=== PATIENT | female | born 1995 | race Caucasian/White ===

== ENCOUNTER 2018-03-25 00:49 | Emergency (ER) | payer SELFPAY ==
[2018-03-25 01:51] LABS: POC GLUCOSE 110 mg/dL (70-99)
[2018-03-25 08:31] LABS: NEGATIVE OBC STREP NEG; POSITIVE OBC STREP POS
[2018-03-26 13:23] LABS: CHLAMYDIA PROBE Negative (Negative); GC PROBE Negative (Negative)
== END 2018-03-25 02:50 | disposition home or self-care (01) ==
LOC: ER 00:49
DX: O26.891 Other specified pregnancy related conditions, first trimester (principal); O24.911 Unspecified diabetes mellitus in pregnancy, first trimester; O99.511 Diseases of the respiratory system complicating pregnancy, first trimester; H60.91 Unspecified otitis externa, right ear; J02.9 Acute pharyngitis, unspecified; R10.9 Unspecified abdominal pain; K04.7 Periapical abscess without sinus; Z59.0 Homelessness; Z3A.01 Less than 8 weeks gestation of pregnancy
CPT/HCPCS: 82962; 87070; 87491; 87591; 87880; 99284; Q0111

== ENCOUNTER 2018-04-06 11:09 | Emergency (ER) | payer SELFPAY ==
[2018-04-06 11:45] LABS: ADD MAN DIFF? NO
[2018-04-06 11:50] LABS: BASO % 0 % (0-3); EOS # 0.2 x10^3/uL (0.0-0.7); EOS % 2 % (0-3); HEMOGLOBIN 10.7 g/dL (12.0-15.5); LYMPH # 1.4 x10^3/uL (1.0-4.8); LYMPH % 12 % (24-48); MEAN CORPUSCULAR HEMOGLOBIN 23 pg (25-35); MEAN CORPUSCULAR HGB CONC 32 g/dL (31-37); MEAN CORPUSCULAR VOLUME 70 fL (79-100); MONO # 0.4 x10^3/uL (0.0-1.1); MONO % 4 % (0-9); NEUT # 9.5 x10^3uL (1.8-7.7); NEUT % 82 % (31-73); PLATELET COUNT 409 x10^3/uL (140-400); RED BLOOD COUNT 4.71 x10^6/uL (3.50-5.40); RED CELL DISTRIBUTION WIDTH 16.2 % (11.5-14.5); WHITE BLOOD COUNT 11.5 x10^3/uL (4.0-11.0)
[2018-04-06 11:59] LABS: ANION GAP 11 (6-14); BLOOD UREA NITROGEN 7 mg/dL (7-20); CALCIUM 8.8 mg/dL (8.5-10.1); CARBON DIOXIDE 23 mmol/L (21-32); CHLORIDE 105 mmol/L (98-107); CREATININE 0.6 mg/dL (0.6-1.0); GFR 123.9; GLUCOSE 104 mg/dL (70-99); POTASSIUM 3.9 mmol/L (3.5-5.1); SODIUM 139 mmol/L (136-145)
[2018-04-06 12:00] LABS: NEG OBC SER NEG; POS OBC SER POS; PREG TEST PT QUAL NEGATIVE (NEG)
[2018-04-06 12:05] LABS: ALBUMIN 3.4 g/dL (3.4-5.0); ALK PHOS 123 U/L (46-116); ALT (SGPT) 51 U/L (14-59); AST (SGOT) 44 U/L (15-37); DIRECT BILIRUBIN 0.1 mg/dL (0.0-0.2); LIPASE 99 U/L (73-393); TOTAL BILIRUBIN 0.7 mg/dL (0.2-1.0); TOTAL PROTEIN 7.4 g/dL (6.4-8.2)
[2018-04-06 12:09] LABS: TROPONINI < 0.017 ng/mL (0.000-0.055)
[2018-04-06 12:34] LABS: PLT ESTIMATE INCREASED (ADEQUATE)
[2018-04-06 12:35] LABS: ANISOCYTOSIS SLIGHT; HYPOCHROMIA SLIGHT; MICROCYTOSIS MOD; POLYCHROMASIA SLIGHT
[2018-04-06 12:36] LABS: OVALOCYTES FEW
== END 2018-04-06 13:05 | disposition home or self-care (01) ==
LOC: ER 11:09
DX: O26.891 Other specified pregnancy related conditions, first trimester (principal); R07.9 Chest pain, unspecified; Z3A.01 Less than 8 weeks gestation of pregnancy
CPT/HCPCS: 36415; 71045; 80048; 80076; 83690; 84484; 84703; 85025; 93005; 93970; 99285-25

== ENCOUNTER 2018-11-30 21:06 | Emergency (ER) | payer SELFPAY ==
[~2018-11-30] VITALS: Ht 175.3 cm; Wt 95.3 kg
[~2018-11-30 21:06] MED LIST: ALBU2.5V8 IH; DOCU-109 PO; HYDR-2761 PO; IRON1TAB2 PO; LEVO500T59 PO; NEOM10DR32 RIGHT EAR; guaiFENesin/CODEINE 100mg/10mg PO
[2018-11-30 22:38] LABS: BILIRUBIN,URINE NEGATIVE (NEG); CLARITY,URINE CLEAR; COLOR,URINE YELLOW; NITRITE,URINE NEGATIVE (NEG); PH,URINE 5.5; PROTEIN,URINE NEGATIVE (NEG-TRACE); UROBILINOGEN,URINE 0.2 mg/dL (0.2 mg/dL)
[2018-11-30 22:51] LABS: BACTERIA,URINE FEW /HPF (0-FEW); SQUAMOUS EPITHELIAL CELL,UR MOD /LPF
--- NOTE | 2018-11-30 23:01 | RAD ---
AP abdomen radiograph 07/30/2019 CLINICAL HISTORY: Constipation. An AP supine portable digital radiograph abdomen/pelvis was obtained. Surgical clips are seen within the right upper quadrant abdomen consistent with a cholecystectomy. The abdominal bowel gas pattern is nonobstructive. A moderate amount of stool is seen throughout the colon. The osseous structures are grossly intact. No radiopaque calculus is seen. IMPRESSION: Nonobstructive bowel gas pattern. A moderate amount of stool is seen throughout the colon. Electronically signed by: Dallas Lester MD (11/30/2018 10:58 PM) [facility]
[2018-11-30] MEDS ORDERED: MAGN296S9 PO (23:08)
[2018-11-30 23:15] VITALS: BP 115/58
--- NOTE | 2018-11-30 23:15 | PHYS DOC ---
Past Medical History Past Medical History: Diabetes-Type I, Other Additional Past Medical Histor: 2 miscarriages Past Surgical History: Cholecystectomy Alcohol Use: Occasionally Drug Use: None Adult General Chief Complaint Chief Complaint: CONSTIPATION HPI HPI Patient is a 23 year old [f__sex] who presents with [] Review of Systems Review of Systems Constitutional: Denies fever or chills [] Eyes: Denies change in visual acuity, redness, or eye pain [] HENT: Denies nasal congestion or sore throat [] Respiratory: Denies cough or shortness of breath [] Cardiovascular: No additional information not addressed in HPI [] GI: Denies abdominal pain, nausea, vomiting, bloody stools or diarrhea [] : Denies dysuria or hematuria [] Musculoskeletal: Denies back pain or joint pain [] Integument: Denies rash or skin lesions [] Neurologic: Denies headache, focal weakness or sensory changes [] Endocrine: Denies polyuria or polydipsia [] All other systems were reviewed and found to be within normal limits, except as documented in this note. Allergies Allergies Allergies Coded Allergies Type Severity Reaction Last Updated Verified No Known Drug Allergies 05/11/14 No Physical Exam Physical Exam Constitutional: Well developed, well nourished, no acute distress, non-toxic appearance. [] HENT: Normocephalic, atraumatic, bilateral external ears normal, oropharynx moist, no oral exudates, nose normal. [] Eyes: PERRLA, EOMI, conjunctiva normal, no discharge. [] Neck: Normal range of motion, no tenderness, supple, no stridor. [] Cardiovascular:Heart rate regular rhythm, no murmur [] Lungs & Thorax: Bilateral breath sounds clear to auscultation [] Abdomen: Bowel sounds normal, soft, no tenderness, no masses, no pulsatile masses. [] Skin: Warm, dry, no erythema, no rash. [] Back: No tenderness, no CVA tenderness. [] Extremities: No tenderness, no cyanosis, no clubbing, ROM intact, no edema. [] Neurologic: Alert and oriented X 3, normal motor function, normal sensory function, no focal deficits noted. [] Psychologic: Affect normal, judgement normal, mood normal. [] Current Patient Data Vital Signs Vital Signs Date Time Temp Pulse Resp B/P (MAP) Pulse Ox O2 Delivery O2 Flow Rate FiO2 2/12/19 21:45 98.3 98 20 146/61 (89) 97 Room Air 98.3 Lab Values Laboratory Tests Test 11/30/18 21:15 11/30/18 21:21 Urine Collection Type Unknown Urine Color Yellow Urine Clarity Clear Urine pH 5.5 Urine Specific [place] 1.020 Urine Protein Negative mg/dL (NEG-TRACE) Urine Glucose (UA) Negative mg/dL (NEG) Urine Ketones (Stick) Negative mg/dL (NEG) Urine Blood Moderate (NEG) Urine Nitrite Negative (NEG) Urine Bilirubin Negative (NEG) Urine Urobilinogen Dipstick 0.2 mg/dL (0.2 mg/dL) Urine Leukocyte Esterase Negative (NEG) Urine RBC 6-10 /HPF (0-2) Urine WBC 1-4 /HPF (0-4) Urine Squamous Epithelial Cells Mod /LPF Urine Bacteria Few /HPF (0-FEW) Urine Mucus Mod /LPF POC Urine HCG, Qualitative Hcg negative (Negative) EKG EKG [] Radiology/Procedures Radiology/Procedures [] Course & Med Decision Making Course & Med Decision Making Pertinent Labs and Imaging studies reviewed. (See chart for details) [] Dragon Disclaimer Dragon Disclaimer This electronic medical record was generated, in whole or in part, using a voice recognition dictation system. Departure Departure Impression: Primary Impression: Constipation Disposition: 01 HOME, SELF-CARE Condition: STABLE Referrals: LIOR SCHMITT MD (PCP) Patient Instructions: Constipation, Adult Additional Instructions: Take the medication as directed. Follow-up with your primary care provider for further evaluation of your constipation. Follow-up with your provider for further needs with your diabetes. Scripts Magnesium Citrate (MAGNESIUM CITRATE) 296 Ml Solution 296 ML PO ONCE for constipation, #296 ML Prov: JAMIE FERNANDEZ [employer] MACHINE OPERATOR 11/30/18 JAMIE FERNANDEZ [employer] SEWING MACHINE OPERATOR Nov 30, 2018 23:15
== END 2018-11-30 23:25 | disposition home or self-care (01) ==
LOC: ER 21:06
DX: K59.00 Constipation, unspecified (principal); E10.9 Type 1 diabetes mellitus without complications; Z90.49 Acquired absence of other specified parts of digestive tract
CPT/HCPCS: 74018; 81001; 81025; 82962; 99284

== ENCOUNTER 2018-12-26 03:07 | Emergency (ER) | payer SELFPAY ==
[~2018-12-26] VITALS: Ht 162.6 cm; Wt 97.5 kg
[~2018-12-26 03:07] MED LIST changes: +MAGN296S9 PO
[2018-12-26 03:39] LABS: BILIRUBIN,URINE NEGATIVE (NEG); CLARITY,URINE TURBID; COLOR,URINE YELLOW; NITRITE,URINE NEGATIVE (NEG); PROTEIN,URINE 100 mg/dL (NEG-TRACE)
[2018-12-26 04:11] LABS: BACTERIA,URINE MODERATE /HPF (0-FEW); RBC,URINE TNTC /HPF (0-2); SQUAMOUS EPITHELIAL CELL,UR FEW /LPF; WBC,URINE TNTC /HPF (0-4)
[2018-12-26] MEDS ORDERED: KETOROLAC 15 MG/ML VIAL. IV ONE (04:15)
[2018-12-26 04:21] LABS: BASO # 0.1 x10^3/uL (0.0-0.2); BASO % 1 % (0-3); EOS # 0.3 x10^3/uL (0.0-0.7); EOS % 2 % (0-3); HEMATOCRIT 38.7 % (36.0-47.0); HEMOGLOBIN 12.4 g/dL (12.0-15.5); LYMPH # 2.4 x10^3/uL (1.0-4.8); LYMPH % 20 % (24-48); MEAN CORPUSCULAR HEMOGLOBIN 26 pg (25-35); MEAN CORPUSCULAR HGB CONC 32 g/dL (31-37); MEAN CORPUSCULAR VOLUME 81 fL (79-100); MONO # 0.8 x10^3/uL (0.0-1.1); MONO % 7 % (0-9); NEUT # 8.4 x10^3uL (1.8-7.7); NEUT % 70 % (31-73); PLATELET COUNT 371 x10^3/uL (140-400); RED BLOOD COUNT 4.76 x10^6/uL (3.50-5.40); RED CELL DISTRIBUTION WIDTH 15.4 % (11.5-14.5); WHITE BLOOD COUNT 11.9 x10^3/uL (4.0-11.0)
[2018-12-26 04:34] LABS: CALCIUM 8.9 mg/dL (8.5-10.1); CREATININE 0.7 mg/dL (0.6-1.0); GFR 103.7; POTASSIUM 3.7 mmol/L (3.5-5.1)
[2018-12-26 04:40] LABS: ALBUMIN 3.2 g/dL (3.4-5.0); ALBUMIN/GLOBULIN RATIO 0.7 (1.0-1.7); TOTAL BILIRUBIN 0.2 mg/dL (0.2-1.0); TOTAL PROTEIN 7.5 g/dL (6.4-8.2)
[2018-12-26] MEDS ORDERED: cefTRIAXone IV Push 1 GM VIAL. IVP ONE (04:45)
--- NOTE | 2018-12-26 05:21 | RAD ---
Indication:ACUTE LOW PELVIC PAIN TECHNIQUE: Grayscale, color Doppler and spectral waveform images of the pelvis obtained. COMPARISON:None FINDINGS: The uterus is retroverted and measures 8.3 x 4.4 x 5.0 cm (longitudinal, AP, transverse). Endometrium is thickened measuring 1.5 cm. Right ovary measures 2.3 x 2.3 x 4.9 cm with multiple follicles and shows evidence of blood flow. There is a 1.8 x 1.5 x 1.5 cm isoechoic nodule in the right ovary. The left ovary measures 3.0 x 2.7 x 2.0 cm with a 2.1 x 2.1 x 1.5 cm anechoic cyst adjacent to the left ovary. Left ovary demonstrates evidence of blood flow. Loculated fluid collection is seen in the pelvis with internal septations and debris. IMPRESSION: 1. Bilateral ovaries demonstrate evidence of blood flow. 2. Most likely minimally complicated cyst/hemorrhagic cyst in the right ovary. Follow-up ultrasound in 8-12 weeks recommended. 3. Minimally complicated fluid with septations and internal debris in the pelvis. Electronically signed by: Bharat Cage DO (12/26/2018 5:18 AM) [facility]
[2018-12-26] MEDS ORDERED: AZITHROMYCIN 250 MG TABLET. PO ONE (05:30)
--- NOTE | 2018-12-26 05:31 | PHYS DOC ---
Past Medical History Past Medical History: Diabetes-Type II, Other Additional Past Medical Histor: 2 miscarriages (ZHOU MORALES MD) Past Surgical History: Cholecystectomy (ZHOU MORALES MD) Alcohol Use: None Drug Use: None (ZHOU MORALES MD) Adult General Chief Complaint Chief Complaint: ABDOMINAL PAIN IN HPI HPI Patient is a 23 year old f p/w low abdominal pain thought she was but upreg neg in the er she said she took preg test late october . pt has no vaginal discharge, no vaginal bleeding positive nausea tonight had incraseed pa9in just below umbilicus sharp and cramping in nature so came to er to have baby checked out pt is homeless lives in tent with boyfriend denies dv (ZHOU MORALES MD) Review of Systems Review of Systems Constitutional: Denies fever or chills [] Eyes: Denies change in visual acuity, redness, or eye pain [] HENT: Denies nasal congestion or sore throat [] Respiratory: Denies cough or shortness of breath [] Cardiovascular: No additional information not addressed in HPI [] GI: Neurologic: Denies headache, focal weakness or sensory changes [] Endocrine: Denies polyuria or polydipsia [] All other systems were reviewed and found to be within normal limits, except as documented in this note. (ZHOU MORALES MD) Current Medications Current Medications Current Medications Medications (Trade) Dose Ordered Sig/Pretty Start Time Stop Time Status Last Admin Dose Admin Azithromycin (Zithromax) 1,000 mg 1X ONCE 12/26/18 05:30 12/26/18 05:31 DC 12/26/18 05:29 1,000 MG Ceftriaxone Sodium (Rocephin) 1 gm 1X ONCE 12/26/18 04:45 12/26/18 05:05 DC 12/26/18 04:54 1 GM Info (CONTRAST GIVEN -- Rx MONITORING) 1 each PRN DAILY PRN 12/26/18 06:00 12/28/18 05:59 Iohexol (Omnipaque 300 Mg/ml) 75 ml 1X ONCE 12/26/18 06:00 12/26/18 06:01 DC 12/26/18 06:07 75 ML Ketorolac Tromethamine (Toradol 15mg Vial) 15 mg 1X ONCE 12/26/18 04:15 12/26/18 04:16 DC 12/26/18 04:22 15 MG ([facility]) Allergies Allergies Allergies Coded Allergies Type Severity Reaction Last Updated Verified No Known Drug Allergies 12/26/18 No ([facility]) Physical Exam Physical Exam Constitutional: Well developed, well nourished, no acute distress, non-toxic appearance. [] HENT: Normocephalic, atraumatic, bilateral external ears normal, oropharynx moist, no oral exudates, nose normal. [] Eyes: PERRLA, EOMI, conjunctiva normal, no discharge. [] Neck: Normal range of motion, no tenderness, supple, no stridor. [] Cardiovascular:Heart rate regular rhythm, no murmur [] Lungs & Thorax: Bilateral breath sounds clear to auscultation [] Abdomen: Bowel sounds normal, soft,mild suprapubic tenderness, no masses, no pulsatile masses. [] Skin: Warm, dry, no erythema, no rash. [] gu: there is physiologic discharge negative CMT negative adnexal tenderness. Extremities: No tenderness, no cyanosis, no clubbing, ROM intact, no edema. [] Neurologic: Alert and oriented X 3, normal motor function, normal sensory function, no focal deficits noted. [] Psychologic: Affect normal, judgement normal, mood normal. [] (ZHOU MORALES MD) Current Patient Data Vital Signs Vital Signs Date Time Temp Pulse Resp B/P (MAP) Pulse Ox O2 Delivery O2 Flow Rate FiO2 12/26/18 06:16 72 18 103/51 (68) 96 12/26/18 04:25 Room Air 12/26/18 03:07 97.4 97.4 ([facility]) Lab Values Laboratory Tests Test 12/26/18 02:17 12/26/18 02:20 12/26/18 02:26 12/26/18 03:35 White Blood Count 11.9 x10^3/uL (4.0-11.0) H Red Blood Count 4.76 x10^6/uL (3.50-5.40) Hemoglobin 12.4 g/dL (12.0-15.5) Hematocrit 38.7 % (36.0-47.0) Mean Corpuscular Volume 81 fL (79-100) Mean Corpuscular Hemoglobin 26 pg (25-35) Mean Corpuscular Hemoglobin Concent 32 g/dL (31-37) Red Cell Distribution Width 15.4 % (11.5-14.5) H Platelet Count 371 x10^3/uL (140-400) Neutrophils (%) (Auto) 70 % (31-73) Lymphocytes (%) (Auto) 20 % (24-48) L Monocytes (%) (Auto) 7 % (0-9) Eosinophils (%) (Auto) 2 % (0-3) Basophils (%) (Auto) 1 % (0-3) Neutrophils # (Auto) 8.4 x10^3uL (1.8-7.7) H Lymphocytes # (Auto) 2.4 x10^3/uL (1.0-4.8) Monocytes # (Auto) 0.8 x10^3/uL (0.0-1.1) Eosinophils # (Auto) 0.3 x10^3/uL (0.0-0.7) Basophils # (Auto) 0.1 x10^3/uL (0.0-0.2) Maternal Serum HCG Beta Subunit < 1 mIU/mL (0-5) Sodium Level 140 mmol/L (136-145) Potassium Level 3.7 mmol/L (3.5-5.1) Chloride Level 103 mmol/L (98-107) Carbon Dioxide Level 24 mmol/L (21-32) Anion Gap 13 (6-14) Blood Urea Nitrogen 10 mg/dL (7-20) Creatinine 0.7 mg/dL (0.6-1.0) Estimated GFR (Cockcroft-Gault) 103.7 BUN/Creatinine Ratio 14 (6-20) Glucose Level 154 mg/dL (70-99) H Calcium Level 8.9 mg/dL (8.5-10.1) Total Bilirubin 0.2 mg/dL (0.2-1.0) Aspartate Amino Transferase (AST) 32 U/L (15-37) Alanine Aminotransferase (ALT) 40 U/L (14-59) Alkaline Phosphatase 111 U/L (46-116) Total Protein 7.5 g/dL (6.4-8.2) Albumin 3.2 g/dL (3.4-5.0) L Albumin/Globulin Ratio 0.7 (1.0-1.7) L Lipase 83 U/L (73-393) Urine Collection Type Unknown Urine Color Yellow Urine Clarity Turbid Urine pH 6.0 Urine Specific [place] 1.025 Urine Protein 100 mg/dL (NEG-TRACE) Urine Glucose (UA) Negative mg/dL (NEG) Urine Ketones (Stick) Negative mg/dL (NEG) Urine Blood Large (NEG) Urine Nitrite Negative (NEG) Urine Bilirubin Negative (NEG) Urine Urobilinogen Dipstick 1.0 mg/dL (0.2 mg/dL) Urine Leukocyte Esterase Large (NEG) Urine RBC Tntc /HPF (0-2) Urine WBC Tntc /HPF (0-4) Urine Squamous Epithelial Cells Few /LPF Urine Bacteria Moderate /HPF (0-FEW) POC Urine HCG, Qualitative Hcg negative (Negative) Glucose (Fingerstick) 156 mg/dL (70-99) H Laboratory Tests 12/26/18 02:17 Laboratory Tests 12/26/18 02:17 Microbiology 12/26/18 Wet Prep - Final, Complete (PRASANNA RODRIGUEZ DO) EKG EKG [] (ZHOU MORALES MD) Radiology/Procedures Radiology/Procedures [] (ZHOU MORALES MD) Radiology/Procedures TECHNIQUE: CT abdomen and pelvis with IV contrast with multiplanar reformats. COMPARISON: 07/08/2017 FINDINGS: Heart is normal in size. No pericardial or pleural effusion. Clear lung bases. Liver, spleen, pancreas, adrenals and kidneys within normal limits. No enlarged retroperitoneal or pelvic adenopathy. Status post cholecystectomy. Trace amount of free pelvic fluid is seen. No loculated fluid. No bowel obstruction. Normal appendix. Retroverted uterus. Urinary bladder is within normal limits. No pneumoperitoneum. No suspicious bony lesion. IMPRESSION: Trace amount of free pelvic fluid, nonspecific. PROCEDURE: PELVIS W/TV Indication:ACUTE LOW PELVIC PAIN TECHNIQUE: Grayscale, color Doppler and spectral waveform images of the pelvis obtained. COMPARISON:None FINDINGS: The uterus is retroverted and measures 8.3 x 4.4 x 5.0 cm (longitudinal, AP, transverse). Endometrium is thickened measuring 1.5 cm. Right ovary measures 2.3 x 2.3 x 4.9 cm with multiple follicles and shows evidence of blood flow. There is a 1.8 x 1.5 x 1.5 cm isoechoic nodule in the right ovary. The left ovary measures 3.0 x 2.7 x 2.0 cm with a 2.1 x 2.1 x 1.5 cm anechoic cyst adjacent to the left ovary. Left ovary demonstrates evidence of blood flow. Loculated fluid collection is seen in the pelvis with internal septations and debris. IMPRESSION: 1. Bilateral ovaries demonstrate evidence of blood flow. 2. Most likely minimally complicated cyst/hemorrhagic cyst in the right ovary. Follow-up ultrasound in 8-12 weeks recommended. 3. Minimally complicated fluid with septations and internal debris in the pelvis. (PRASANNA RODRIGUEZ DO) Impressions: IMPRESSION: 1. Bilateral ovaries demonstrate evidence of blood flow. 2. Most likely minimally complicated cyst/hemorrhagic cyst in the right ovary. Follow-up ultrasound in 8-12 weeks recommended. 3. Minimally complicated fluid with septations and internal debris in the pelvis. Electronically signed by: Bharat Cage DO (12/26/2018 5:18 AM) [facility] (ZHOU MORALES MD) Course & Med Decision Making Course & Med Decision Making Pertinent Labs and Imaging studies reviewed. (See chart for details) []Patient is a 23-year-old female with a history of homelessness presented initially with lower abdominal pain in the setting of however she is not we did ultrasound that showed hemorrhagic ovarian cyst which needs follow-up however there is also a complicated septated fluid collection in the low pelvis. This is of unclear etiology at this time I think she warrants further imaging CT abdomen and pelvis will be ordered. Urine showed a definite UTI as well she will receive treatment for this we treated her presumptively with ceftriaxone and azithromycin for STI disease although the pelvic exam really was not consistent with significant pelvic inflammatory disease. Her educational programming director Dr. Bojorquez. ct pending to evaluate the septated fluid collection sign out to [phone] (ZHOU MORALES MD) Course & Med Decision Making Dr. Rodriguez's note Received patient at 6:15. Agree with previous H&P. Patient does not appear to have any need for urgent/emergent surgical intervention based on CT despite the ultrasound that was concerning. Subsequent CT did not show any complex septated fluid collection. She does have the ovarian cyst that does need to be followed up and she voiced understanding and this was discussed with her. Does not appear to have pyelonephritis. She did receive IV antibiotics while in the emergency department and will continue treatment be on ceftriaxone with continued Keflex. Patient was discharged in improved condition. (PRASANNA RODRIGUEZ DO) Dragon Disclaimer Dragon Disclaimer This electronic medical record was generated, in whole or in part, using a voice recognition dictation system. (ZHOU MORALES MD) Departure Departure Impression: Primary Impression: Abdominal pain Additional Impressions: UTI (urinary tract infection) Ovarian cyst Disposition: HOME, SELF-CARE Condition: IMPROVED Referrals: LIOR SCHMITT MD (PCP) Follow-up in 2 days Patient Instructions: Abdominal Pain (Nonspecific), Ovarian Cyst, Urinary Tract Infection Additional Instructions: You have an ovarian cyst on the right side that a follow-up ultrasound is recommended in the next 8-12 weeks. This can be arranged as an outpatient through your primary care physician. Drink plenty of fluids. Follow-up with your regular doctor in 2 days. Return to the ER if worsening discomfort. Scripts Phenazopyridine Hcl (PYRIDIUM) 200 Mg Tablet 200 MG PO TID for 2 Days, #6 TAB Prov: PRASANNA RODRIGUEZ DO 12/26/18 Tramadol Hcl (TRAMADOL HCL) 50 Mg Tablet 50 MG PO Q6HRS PRN for PAIN, #20 TAB Prov: PRASANNA RODRIGUEZ DO 12/26/18 Meloxicam (MELOXICAM) 7.5 Mg Tablet 7.5 MG PO DAILY, #20 TAB Prov: PRASANNA RODRIGUEZ DO 12/26/18 Cephalexin (CEPHALEXIN) 500 Mg Tablet 1 TAB PO TID, #30 TAB Prov: PRASANNA RODRIGUEZ DO 12/26/18 Problem Qualifiers Primary Impression: Abdominal pain Abdominal location: lower abdomen, unspecified Qualified Codes: R10.30 - Lower abdominal pain, unspecified Additional Impressions: UTI (urinary tract infection) Urinary tract infection type: site unspecified Hematuria presence: with hematuria Qualified Codes: N39.0 - Urinary tract infection, site not specified ; R31.9 - Hematuria, unspecified Ovarian cyst Laterality: unspecified laterality Qualified Codes: N83.209 - Unspecified ovarian cyst, unspecified side ZHOU MORALES MD Dec 26, 2018 05:31 PRASANNA RODRIGUEZ DO Dec 26, 2018 06:37
[2018-12-26] MEDS ORDERED: CONTRAST GIVEN. MC PRN (06:00)
[2018-12-26] MEDS ORDERED: IOHEXOL 300 MG/ML 100ML VIAL. IV ONE (06:00)
--- NOTE | 2018-12-26 06:23 | RAD ---
PQRS Compliance statement: One or more of the following individualized dose reduction techniques were utilized for this examination: 1. Automated exposure control. 2. Adjustment of the mA and/or kV according to patient size. 3. Use of iterative reconstruction technique. Indication:ABD PAIN; OMNI 300, 75ML. Evaluate fluid collection seen on ultrasound. TECHNIQUE: CT abdomen and pelvis with IV contrast with multiplanar reformats. COMPARISON: 07/08/2017 FINDINGS: Heart is normal in size. No pericardial or pleural effusion. Clear lung bases. Liver, spleen, pancreas, adrenals and kidneys within normal limits. No enlarged retroperitoneal or pelvic adenopathy. Status post cholecystectomy. Trace amount of free pelvic fluid is seen. No loculated fluid. No bowel obstruction. Normal appendix. Retroverted uterus. Urinary bladder is within normal limits. No pneumoperitoneum. No suspicious bony lesion. IMPRESSION: Trace amount of free pelvic fluid, nonspecific. Electronically signed by: Bharat Cage DO (12/26/2018 6:19 AM) [facility]
[2018-12-26] MEDS ORDERED: TRAM50TA PO (06:36)
[2018-12-26] MEDS ORDERED: PHEN-318 PO (06:36)
[2018-12-26] MEDS ORDERED: CEPH500T PO (06:36)
[2018-12-26] MEDS ORDERED: MELO7.5T29 PO (06:36)
[2018-12-26 06:55] VITALS: BP 109/78
[2018-12-27 14:19] LABS: GC PROBE Negative (Negative)
== END 2018-12-26 06:55 | disposition home or self-care (01) ==
LOC: ER 03:07
DX: O34.81 Maternal care for other abnormalities of pelvic organs, first trimester (principal); N83.202 Unspecified ovarian cyst, left side; O23.41 Unspecified infection of urinary tract in pregnancy, first trimester; R10.30 Lower abdominal pain, unspecified; O24.911 Unspecified diabetes mellitus in pregnancy, first trimester; Z90.49 Acquired absence of other specified parts of digestive tract; Z59.0 Homelessness; Z3A.01 Less than 8 weeks gestation of pregnancy
CPT/HCPCS: 36415; 74177; 76830; 76856; 80053; 81001; 81025; 82962; 83690; 84702; 85025; 87086; 87491; 87591; 96374; 96375; 99284; J0696; J1885; Q0111; Q0144; Q9967

== ENCOUNTER 2020-11-26 14:37 | Emergency (ER) | payer SELFPAY ==
[~2020-11-26] VITALS: Ht 162.6 cm; Wt 127.0 kg
[~2020-11-26 14:37] MED LIST changes: +ACET325T9 PO; -ALBU2.5V8 IH; +AMOX1TAB58 PO; +CEPH500T PO; +LIDO700A21 TD; +MAGN296S68 PO; -MAGN296S9 PO; +MELO7.5T29 PO; +PHEN-318 PO; +PROVENTIL HFA6.7 GM IH; +TRAM50TA PO
[2020-11-26 16:26] LABS: BILIRUBIN,URINE NEGATIVE (NEG); CLARITY,URINE CLOUDY; COLOR,URINE YELLOW; NITRITE,URINE NEGATIVE (NEG); PH,URINE 6.5 (<5.0-8.0); PROTEIN,URINE NEGATIVE (NEG-TRACE); UROBILINOGEN,URINE 0.2 mg/dL (0.2 mg/dL)
[2020-11-26 16:34] LABS: BARBITURATES NEG (NEG); BENZODIAZEPINES NEG (NEG); CANNABINOIDS NEG (NEG); COCAINE NEG (NEG); METHADONE NEG (NEG); OPIATES NEG (NEG); PHENCYCLIDINE NEG (NEG)
[2020-11-26 16:37] LABS: AMPHETAMINE/METHAMPHETAMINE NEG (NEG); RBC,URINE >40 /HPF (0-2)
[2020-11-26 16:38] LABS: BASO # 0.1 x10^3/uL (0.0-0.2); BASO % 1 % (0-3); EOS # 0.4 x10^3/uL (0.0-0.7); EOS % 3 % (0-3); HEMATOCRIT 27.5 % (36.0-47.0); HEMOGLOBIN 8.8 g/dL (12.0-15.5); LYMPH # 2.7 x10^3/uL (1.0-4.8); LYMPH % 21 % (24-48); MEAN CORPUSCULAR HEMOGLOBIN 21 pg (25-35); MEAN CORPUSCULAR HGB CONC 32 g/dL (31-37); MEAN CORPUSCULAR VOLUME 67 fL (79-100); MONO # 0.9 x10^3/uL (0.0-1.1); MONO % 7 % (0-9); NEUT # 8.5 x10^3/uL (1.8-7.7); NEUT % 68 % (31-73); PLATELET COUNT 467 x10^3/uL (140-400); RED BLOOD COUNT 4.13 x10^6/uL (3.50-5.40); RED CELL DISTRIBUTION WIDTH 18.5 % (11.5-14.5); WHITE BLOOD COUNT 12.6 x10^3/uL (4.0-11.0)
[2020-11-26 16:38] LABS: BACTERIA,URINE 0 /HPF (0-FEW)
--- NOTE | 2020-11-26 16:59 | RAD ---
Exam: Ultrasound pelvis Indication: Vaginal bleeding Technique: Real-time grayscale and color Doppler images of the pelvis were obtained by the department mine wirer. Comparisons: 06/16/2020 CT FINDINGS: Uterus measures 7.6 x 4.5 x 4.1. Endometrium is 2 cm in thickness. Right ovary measures 2.7 x 1.9 x 2.5 cm. Left ovary measures 5.2 x 2.4 x 2.8 cm. Large cysts noted in the left ovary measuring 1.5 cm. Vascular flow identified within the ovaries bilaterally. No free fluid in the pelvis. IMPRESSION: 1. Cyst noted within the left ovary measuring up to 1.5 cm. 2. Otherwise, normal sonographic appearance of the uterus and ovaries. No evidence for torsion. Electronically signed by: Jose Armando Young MD (11/26/2020 4:56 PM) [facility]
[2020-11-26] MEDS ORDERED: ACETAMINOPHEN 500 MG TABLET PO ONE (17:00)
[2020-11-26 17:14] LABS: PLT ESTIMATE INCREASED (ADEQUATE)
[2020-11-26 17:15] LABS: HYPOCHROMIA MOD; MICROCYTOSIS MOD
[2020-11-26 17:16] LABS: ANISOCYTOSIS MOD
[2020-11-26 17:17] LABS: POLYCHROMASIA SLIGHT
--- NOTE | 2020-11-26 18:51 | PHYS DOC ---
Past Medical History Past Medical History: Diabetes-Type II Additional Past Medical Histor: Insomnia Past Surgical History: Cholecystectomy Smoking Status: Current Every Day Smoker Alcohol Use: None Drug Use: None General Adult EDM: Chief Complaint: VAGINAL BLEEDING HPI: HPI: Patient is a 25 year old female with history of diabetes type 2 who presents the ED today complaining of vaginal bleeding, symptoms began 1-1/2 months ago. Patient states has used 5 pads in the last 24 hours. Denies any abdominal pain, denies any chance she is . Is also complaining of a cough intermittently for a month. Denies any fever. Denies any chest pain or shortness of breath. Review of Systems: Review of Systems: Constitutional: Denies fever or chills. [] Eyes: Denies change in visual acuity. [] HENT: Denies nasal congestion or sore throat. [] Respiratory: Reports cough, denies shortness of breath. [] Cardiovascular: Denies chest pain or edema. [] GI: Denies abdominal pain, nausea, vomiting, bloody stools or diarrhea. [] : Denies dysuria. [] Musculoskeletal: Denies back pain or joint pain. [] Integument: Denies rash. [] Neurologic: Denies headache, focal weakness or sensory changes. [] Endocrine: Denies polyuria or polydipsia. [] Lymphatic: Denies swollen glands. [] Psychiatric: Denies depression or anxiety. [] Heart Score: Risk Factors: Risk Factors: DM, Current or recent (<one month) smoker, HTN, HLP, family history of CAD, obesity. Risk Scores: Score 0 - 3: 2.5% MACE over next 6 weeks - Discharge Home Score 4 - 6: 20.3% MACE over next 6 weeks - Admit for Clinical Observation Score 7 - 10: 72.7% MACE over next 6 weeks - Early Invasive Strategies Current Medications: Current Medications Medications (Trade) Dose Ordered Sig/Pretty Start Time Stop Time Status Last Admin Dose Admin Acetaminophen (Tylenol) 1,000 mg 1X ONCE 11/26/20 17:00 11/26/20 17:01 DC 11/26/20 17:02 1,000 MG Allergies: Allergies: Allergies Coded Allergies Type Severity Reaction Last Updated Verified No Known Drug Allergies 12/26/18 No Physical Exam: PE: Constitutional: Well developed, well nourished, no acute distress, non-toxic appearance. [] HENT: Normocephalic, atraumatic, bilateral external ears normal, oropharynx moist, no oral exudates, nose normal. [] Eyes: PERRLA, EOMI, conjunctiva normal, no discharge. [] Neck: Normal range of motion, no tenderness, supple, no stridor. [] Cardiovascular:Heart rate regular rhythm, no murmur [] Lungs & Thorax: Bilateral breath sounds clear to auscultation [] Abdomen: Bowel sounds normal, soft, no tenderness, no masses, no pulsatile masses. [] Pelvic exam And a pelvic appears normal, cervix is visualized, closed, no CMT, trace amount of dark brown blood clot in the vaginal vault. No adnexal tenderness Skin: Warm, dry, no erythema, no rash. [] Back: No tenderness, no CVA tenderness. [] Extremities: No tenderness, no cyanosis, no clubbing, ROM intact, no edema. [] Neurologic: Alert and oriented X 3, normal motor function, normal sensory function, no focal deficits noted. [] Psychologic: Affect normal, judgement normal, mood normal. [] Current Patient Data: Labs: Laboratory Tests Test 11/26/20 15:40 11/26/20 16:28 Urine Collection Type Unknown Urine Color Yellow Urine Clarity Cloudy Urine pH 6.5 (<5.0-8.0) Urine Specific Ione 1.015 (1.000-1.030) Urine Protein Negative mg/dL (NEG-TRACE) Urine Glucose (UA) Negative mg/dL (NEG) Urine Ketones (Stick) Negative mg/dL (NEG) Urine Blood Large (NEG) Urine Nitrite Negative (NEG) Urine Bilirubin Negative (NEG) Urine Urobilinogen Dipstick 0.2 mg/dL (0.2 mg/dL) Urine Leukocyte Esterase Trace (NEG) Urine RBC >40 /HPF (0-2) Urine WBC 1-4 /HPF (0-4) Urine Squamous Epithelial Cells Few /LPF Urine Bacteria 0 /HPF (0-FEW) Urine Opiates Screen Neg (NEG) Urine Methadone Screen Neg (NEG) Urine Barbiturates Neg (NEG) Urine Phencyclidine Screen Neg (NEG) Urine Amphetamine/Methamphetamine Neg (NEG) Urine Benzodiazepines Screen Neg (NEG) Urine Cocaine Screen Neg (NEG) Urine Cannabinoids Screen Neg (NEG) Urine Ethyl Alcohol Neg (NEG) White Blood Count 12.6 x10^3/uL (4.0-11.0) H Red Blood Count 4.13 x10^6/uL (3.50-5.40) Hemoglobin 8.8 g/dL (12.0-15.5) L Hematocrit 27.5 % (36.0-47.0) L Mean Corpuscular Volume 67 fL (79-100) L Mean Corpuscular Hemoglobin 21 pg (25-35) L Mean Corpuscular Hemoglobin Concent 32 g/dL (31-37) Red Cell Distribution Width 18.5 % (11.5-14.5) H Platelet Count 467 x10^3/uL (140-400) H Neutrophils (%) (Auto) 68 % (31-73) Lymphocytes (%) (Auto) 21 % (24-48) L Monocytes (%) (Auto) 7 % (0-9) Eosinophils (%) (Auto) 3 % (0-3) Basophils (%) (Auto) 1 % (0-3) Neutrophils # (Auto) 8.5 x10^3/uL (1.8-7.7) H Lymphocytes # (Auto) 2.7 x10^3/uL (1.0-4.8) Monocytes # (Auto) 0.9 x10^3/uL (0.0-1.1) Eosinophils # (Auto) 0.4 x10^3/uL (0.0-0.7) Basophils # (Auto) 0.1 x10^3/uL (0.0-0.2) Platelet Estimate Increased (ADEQUATE) Polychromasia Slight Hypochromasia Mod Anisocytosis Mod Microcytosis Mod Macrocytosis Slight Ethyl Alcohol Level < 10 mg/dL (0-10) Laboratory Tests 11/26/20 16:28 Vital Signs: Vital Signs Date Time Temp Pulse Resp B/P (MAP) Pulse Ox O2 Delivery O2 Flow Rate FiO2 11/26/20 16:08 97.5 72 16 132/69 (90) 99 Room Air 97.5 EKG: EKG: [] Radiology/Procedures: Radiology/Procedures: []PROCEDURE: PELVIS W/TV Exam: Ultrasound pelvis Indication: Vaginal bleeding Technique: Real-time grayscale and color Doppler images of the pelvis were obtained by the department elementary reading specialist. Comparisons: 06/16/2020 CT FINDINGS: Uterus measures 7.6 x 4.5 x 4.1. Endometrium is 2 cm in thickness. Right ovary measures 2.7 x 1.9 x 2.5 cm. Left ovary measures 5.2 x 2.4 x 2.8 cm. Large cysts noted in the left ovary measuring 1.5 cm. Vascular flow identified within the ovaries bilaterally. No free fluid in the pelvis. IMPRESSION: 1. Cyst noted within the left ovary measuring up to 1.5 cm. 2. Otherwise, normal sonographic appearance of the uterus and ovaries. No evidence for torsion. Electronically signed by: Jose Armando Aguilar MD (11/26/2020 4:56 PM) [facility] WITH [facility] DICTATED and SIGNED BY: JOSE ARMANDO AGUILAR MD DATE: 11/26/20 [id number] 0 Course & Med Decision Making: Course & Med Decision Making Pertinent Labs and Imaging studies reviewed. (See chart for details) This is a 25-year-old female patient presenting to the ED today with complaints of vaginal bleeding for 1-1/2 months. She has trace amount of bleeding today. Negative urine hCG. Hemoglobin 8.8, hematocrit 27.5. UA negative. Chest x-ray interpreted by radiologist as negative for any acute findings, was swabbed for COVID-19. Pelvic ultrasound noted for-Cyst noted within the left ovary measuring up to 1.5 cm. Otherwise, normal sonographic appearance of the uterus and ovaries. No evidence for torsion. Results were communicated to patient. She was provided OB for follow-up as an outpatient. Jarrod Disclaimer: Jarrod Disclaimer: This electronic medical record was generated, in whole or in part, using a voice recognition dictation system. Departure Departure Impression: Primary Impression: Cough Additional Impressions: Person under investigation for COVID-19 Dysfunctional uterine bleeding Disposition: 01 DC HOME SELF CARE/HOMELESS Condition: STABLE Referrals: NO PCP (PCP) KELLY AGOSTO Jr, MD follow up in one week Patient Instructions: Cough, Adult, [id number], Uterine Bleeding, Dysfunctional Additional Instructions: You were evaluated in the emergency room, your ultrasound was negative for any acute findings, you have a cyst on your left ovary, this needs to be followed up with your TYING MACHINE OPERATOR. You can use the one provided in you discharge papers. He will also follow-up for the vaginal bleeding too. Come back to the ED at any point symptoms worsen. Take [id number] cough relievers for the cough NATHANIEL HDEZ APRN Nov 26, 2020 18:51
[2020-11-26 19:00] VITALS: BP 127/68
--- NOTE | 2020-11-26 19:56 | RAD ---
XR CHEST 1V Clinical History: Reason: cough. duplicate image. 1st order registered under wrong pt. / Spl. Instruc tions: / History: Technique: AP view of the chest was obtained at 11/26/2020 6:31 PM. Comparison: April 06, 2018. Findings: The cardiomediastinal silhouette is normal. The pulmonary vasculature is normal. The lungs and pleura l margins are clear. Impression: No evidence of an acute cardiopulmonary process. Electronically signed by: Driss Dee III, MD (11/26/2020 7:54 PM) [facility]
--- NOTE | 2020-11-28 15:18 | NUR ---
IP: Informed pt of negative COVID test. Pt verbalized understanding.
== END 2020-11-26 19:05 | disposition home or self-care (01) ==
LOC: ER 14:37
DX: N93.8 Other specified abnormal uterine and vaginal bleeding (principal); Z20.822 Contact with and (suspected) exposure to COVID-19; R05 Cough; E11.9 Type 2 diabetes mellitus without complications; F17.200 Nicotine dependence, unspecified, uncomplicated; Z90.49 Acquired absence of other specified parts of digestive tract
CPT/HCPCS: 36415; 71045; 76830; 76856; 80307; 81001; 85025; 87086; 99285; G0480; U0003; C9803

== ENCOUNTER 2020-12-14 16:08 | Emergency (ER) | payer OTHER ==
[~2020-12-14] VITALS: Ht 162.6 cm; Wt 122.0 kg
--- NOTE | 2020-12-14 17:01 | PHYS DOC ---
Past Medical History Past Medical History: Diabetes-Type II Additional Past Medical Histor: Insomnia Past Surgical History: Cholecystectomy Smoking Status: Current Every Day Smoker Alcohol Use: None Drug Use: None General Adult EDM: Chief Complaint: COUGH HPI: HPI: Patient is a 25 year old female with no past medical history presents with 2 weeks of cough with sputum production, shortness of breath, sore throat, muscle aches and chest discomfort. Symptoms ongoing to x 2 weeks and persistent. Patient was evaluated at this ER had negative covid and was advised to take OTC medications. Patient not on control pills. Review of Systems: Review of Systems: Constitutional: Denies fever or chills. [] Eyes: Denies change in visual acuity. [] HENT: Denies nasal congestion or sore throat. [] Respiratory: Denies cough or shortness of breath. [] Cardiovascular: Denies chest pain or edema. [] GI: Denies abdominal pain, nausea, vomiting, bloody stools or diarrhea. [] : Denies dysuria. [] Musculoskeletal: Denies back pain or joint pain. [] Integument: Denies rash. [] Neurologic: Denies headache, focal weakness or sensory changes. [] Endocrine: Denies polyuria or polydipsia. [] Lymphatic: Denies swollen glands. [] Psychiatric: Denies depression or anxiety. [] Heart Score: Risk Factors: Risk Factors: DM, Current or recent (<one month) smoker, HTN, HLP, family history of CAD, obesity. Risk Scores: Score 0 - 3: 2.5% MACE over next 6 weeks - Discharge Home Score 4 - 6: 20.3% MACE over next 6 weeks - Admit for Clinical Observation Score 7 - 10: 72.7% MACE over next 6 weeks - Early Invasive Strategies Allergies: Allergies: Allergies Coded Allergies Type Severity Reaction Last Updated Verified No Known Drug Allergies 12/26/18 No Physical Exam: PE: Constitutional: Well developed, well nourished, no acute distress, non-toxic appearance. [] HENT: Normocephalic, atraumatic, bilateral external ears normal, oropharynx moist, no oral exudates, nose normal. [] Eyes: PERRLA, EOMI, conjunctiva normal, no discharge. [] Neck: Normal range of motion, no tenderness, supple, no stridor. [] Cardiovascular:Heart rate regular rhythm, no murmur [] Lungs & Thorax: Bilateral breath sounds clear to auscultation [] Abdomen: Bowel sounds normal, soft, no tenderness, no masses, no pulsatile masses. [] Skin: Warm, dry, no erythema, no rash. [] Back: No tenderness, no CVA tenderness. [] Extremities: No tenderness, no cyanosis, no clubbing, ROM intact, no edema. [] Neurologic: Alert and oriented X 3, normal motor function, normal sensory function, no focal deficits noted. [] Psychologic: Affect normal, judgement normal, mood normal. [] Current Patient Data: Vital Signs: Vital Signs Date Time Temp Pulse Resp B/P (MAP) Pulse Ox O2 Delivery O2 Flow Rate FiO2 12/14/20 16:12 98.3 116 20 130/86 (101) 98 Room Air 98.3 EKG: EKG: [] Radiology/Procedures: Radiology/Procedures: [] Impression: IMPRESSION: * Hypoexpanded exam with mild haziness at the lung bases most likely from atelectasis. No definite consolidation elsewhere in the lungs. Electronically signed by: Pj Perez MD (12/14/2020 5:33 PM) [id number] Course & Med Decision Making: Course & Med Decision Making Pertinent Labs and Imaging studies reviewed. (See chart for details) [] Patient was evaluated for chief complaint. Work-up consisted of radiologic imaging. Results reviewed and discussed with patient. Patient was discharged home on Z-Scotty and Robitussin with codeine. Covid test obtained and pending. Jarrod Disclaimer: Jarrod Disclaimer: This electronic medical record was generated, in whole or in part, using a voice recognition dictation system. Departure Departure Impression: Primary Impression: Bronchitis Additional Impressions: Smoker Viral syndrome Person under investigation for COVID-19 Disposition: 01 DC HOME SELF CARE/HOMELESS Condition: STABLE Referrals: NO PCP (PCP) Patient Instructions: Bronchitis, Smoke Inhalation, Mild, Viral Syndrome Additional Instructions: You have been tested for or diagnosed with COVID-19. It is an infection caused by a new type of coronavirus. COVID-19 will cause cold-like or mild flu symptoms in most. It can cause more severe symptoms like problems breathing in some. There is no treatment for COVID-19. The body will clear the infection over time. Self-care will help to ease discomfort. Steps to Take: Self-Care Rest as needed. Healthy habits may help you feel better. Steps include: Choose healthy foods including fruits and vegetables. Drink water throughout the day. Get plenty of sleep each night. If you smoke, try to quit. It may ease breathing. Avoid alcohol. Keep Others Healthy The virus can spread to others. Droplets are released every time you sneeze or cough. The droplets can get into the mouth, nose, or eyes of people near you and lead to infection. To lower the chances of spreading COVID-19 to others: Stay at home until your doctor has said it is safe to leave. If you tested positive this will mean staying isolated until both of the following are true: At least 7 days have passed since the start of illness. You are free of fever for at least 72 hours without the use of medicine. During this time: - Avoid public areas, events, or transportation. Do not return to work or school until your doctor has said it is safe to do so. - Call ahead if you need to go to a medical center. Let them know you may have COVID-19. It will help them guide you where to go. They may also ask you to wear a facemask when you come to the office. - If you call for emergency medical services, let them know you may have COVID- 19. While at home: - Try to avoid close contact with others. Stay about 6 feet away. - If possible, spend most of your time in a separate room from others. - Use a face mask if you will be in close contact with others such as sharing a room or vehicle. - Have someone wipe down common surfaces in the home. Use household spinner open end every day on areas like doorknobs, counters, or sinks. - Cough or sneeze into a tissue. Throw the tissue away right after use. If a tissue is not available, cough or sneeze into your elbow. - Wash your hands often. Wash them after sneezing or coughing. Use soap and water and wash for at least 20 seconds. Alcohol based hand strainer cleaner can be used if soap and water is not available. - Do not prepare food for others. Avoid sharing personal items like forks, spoons, or toothbrushes. - Avoid close contact with pets while you are sick. There is no evidence of the virus passing to pets. This is a safety step until more is known about this virus. Isolation can be frustrating. Social interaction can help. Keep in touch with friends and family through phone and tech options. You can still interact with others in your home, just keep a safe distance of about 6 feet. Follow-up: Your doctors office will check in with you to see if there are any changes in your health. You may be asked to keep track of symptoms to share with them. They will also let you know when you are clear to be in public again. Problems to Look Out For: Contact your doctor if your recovery is not going as you expect. Get emergency care if you have problems such as: - Trouble breathing - Nonstop chest pain or pressure - Changes in awareness, confusion, or problems waking - Lips or face have bluish color - Worsening of symptoms If you think you have an emergency, call for emergency medical services right away. As taken from [facility] Guaifenesin/Codeine Phosphate (Codeine-Guaifen 10-100 mg/5 ml) 120 Ml Liquid 120 ML PO Q4-6HRS, #120 LIQUID Prov: GENNY COOL I DO 12/14/20 Azithromycin (ZITHROMAX) 250 Mg Tablet 1 PKG PO UD, #6 TAB Prov: GENNY COOL I DO 12/14/20 GENNY COOL I DO Dec 14, 2020 17:01
--- NOTE | 2020-12-14 17:36 | RAD ---
INDICATION: Reason: cough / Spl. Instructions: / History: COMPARISON: November 2020 FINDINGS: 2 view of chest obtained. Hypoexpanded exam with enlarged cardiomediastinal silhouette. Mild haziness at lung bases. IMPRESSION: * Hypoexpanded exam with mild haziness at the lung bases most likely from atelectasis. No definite c onsolidation elsewhere in the lungs. Electronically signed by: Pj Perez MD (12/14/2020 5:33 PM) [id number]
[2020-12-14] MEDS ORDERED: AZIT250T PO (17:57)
[2020-12-14] MEDS ORDERED: GUAI120L35 PO (17:57)
[2020-12-14 18:00] VITALS: BP 112/55
--- NOTE | 2020-12-17 08:52 | NUR ---
IP: Informed pt of negative COVID test. pt verbalized understanding.
== END 2020-12-14 18:12 | disposition home or self-care (01) ==
LOC: ER 16:08
DX: J40 Bronchitis, not specified as acute or chronic (principal); Z20.822 Contact with and (suspected) exposure to COVID-19; B34.9 Viral infection, unspecified; E11.9 Type 2 diabetes mellitus without complications; F17.200 Nicotine dependence, unspecified, uncomplicated
CPT/HCPCS: 71046; 99284; C9803; U0003; 99283

== ENCOUNTER 2021-01-24 12:04 | Emergency (ER) | payer SELFPAY ==
[~2021-01-24] VITALS: Ht 162.6 cm; Wt 118.0 kg
[~2021-01-24 12:04] MED LIST changes: +AZIT250T PO; +GUAI120L35 PO
[2021-01-24 12:40] LABS: BILIRUBIN,URINE MODERATE (NEG); CLARITY,URINE CLEAR; COLOR,URINE ORANGE; NITRITE,URINE NEGATIVE (NEG); PROTEIN,URINE 30 mg/dL (NEG-TRACE)
[2021-01-24 12:49] LABS: BASO # 0.2 x10^3/uL (0.0-0.2); BASO % 1 % (0-3); EOS % 7 % (0-3); HEMOGLOBIN 8.6 g/dL (12.0-15.5); LYMPH # 2.6 x10^3/uL (1.0-4.8); LYMPH % 18 % (24-48); MEAN CORPUSCULAR HEMOGLOBIN 18 pg (25-35); MEAN CORPUSCULAR HGB CONC 30 g/dL (31-37); MEAN CORPUSCULAR VOLUME 60 fL (79-100); MONO # 1.2 x10^3/uL (0.0-1.1); MONO % 8 % (0-9); NEUT # 9.4 x10^3/uL (1.8-7.7); NEUT % 66 % (31-73); PLATELET COUNT 454 x10^3/uL (140-400); RED CELL DISTRIBUTION WIDTH 19.4 % (11.5-14.5); WHITE BLOOD COUNT 14.3 x10^3/uL (4.0-11.0)
[2021-01-24 12:51] LABS: BACTERIA,URINE FEW /HPF (0-FEW); BARBITURATES NEG (NEG); BENZODIAZEPINES NEG (NEG); CANNABINOIDS NEG (NEG); COCAINE NEG (NEG); METHADONE NEG (NEG); OPIATES NEG (NEG); PHENCYCLIDINE NEG (NEG); RBC,URINE TNTC /HPF (0-2); WBC,URINE 0 /HPF (0-4)
[2021-01-24 12:52] LABS: AMPHETAMINE/METHAMPHETAMINE NEG (NEG)
[2021-01-24] MEDS: ONDANSETRON PF 4 MG/2 ML VIAL. IVP ONE (12:58)
[2021-01-24] MEDS: fentaNYL PF VIAL 100 MCG/2 ML VIAL IVP ONE (12:58)
[2021-01-24] MEDS: IV NORMAL SALINE 1000ML BAG 1,000 ML IV ONE (12:58)
[2021-01-24 12:59] LABS: CALCIUM 8.5 mg/dL (8.5-10.1); CREATININE 0.7 mg/dL (0.6-1.0); POTASSIUM 3.6 mmol/L (3.5-5.1)
[2021-01-24] MEDS ORDERED: CONTRAST GIVEN. MC PRN (13:00)
[2021-01-24 13:05] LABS: ALBUMIN/GLOBULIN RATIO 0.6 (1.0-1.7); MAGNESIUM 1.9 mg/dL (1.8-2.4); TOTAL BILIRUBIN 1.1 mg/dL (0.2-1.0); TOTAL PROTEIN 7.7 g/dL (6.4-8.2)
--- NOTE | 2021-01-24 13:06 | ED.ADGEN ---
Past Medical History Past Medical History: Anemia, Diabetes-Type II, Hypertension Additional Past Medical Histor: Insomnia Past Surgical History: Cholecystectomy Smoking Status: Current Every Day Smoker Alcohol Use: None Drug Use: None General Adult EDM: Chief Complaint: ABDOMINAL PAIN HPI: HPI: Patient is a 25 year old female with history of type 2 diabetes coming in for 1 week of periumbilical and epigastric abdominal pain associated with nausea, vomiting, diarrhea. Patient states the vomiting is not bloody or bilious, denies any melena or blood in her stools. Patient states she has been unable to hold any food down. Has not had any formed bowel movements in between. Patient states that she has 2-3 episodes of each vomiting and diarrhea daily. Denies any fevers, cough, body aches. Patient denies any sick contacts, recent travel, recent antibiotic use, recent raw or undercooked foods. Patient she had similar symptoms in the past and was told she had the flu. Patient states she has had increased urination without dysuria. Has not been checking her blood sugars regularly. Has a history of cholecystectomy years ago. Review of Systems: Review of Systems: All other systems within normal limits except for as noted in the HPI Current Medications: Current Medications Medications (Trade) Dose Ordered Sig/Pretty Start Time Stop Time Status Last Admin Dose Admin Fentanyl Citrate (Fentanyl 2ml Vial) 75 mcg 1X ONCE 01/24/21 12:30 01/24/21 12:31 DC 01/24/21 12:58 75 MCG Info (CONTRAST GIVEN -- Rx MONITORING) 1 each PRN DAILY PRN 01/24/21 13:00 01/26/21 12:59 Iohexol (Omnipaque 300 Mg/ml) 75 ml 1X ONCE 01/24/21 12:45 01/24/21 12:46 DC 01/24/21 13:13 75 ML Ondansetron HCl (Zofran) 4 mg 1X ONCE 01/24/21 12:30 01/24/21 12:31 DC 01/24/21 12:58 4 MG Sodium Chloride 1,000 ml @ 1,000 mls/hr 1X ONCE 01/24/21 12:30 01/24/21 13:29 DC 01/24/21 12:58 1,000 MLS/HR Allergies: Allergies: Allergies Coded Allergies Type Severity Reaction Last Updated Verified No Known Drug Allergies 4/8/21 No Physical Exam: PE: Constitutional: Well developed, well nourished, no acute distress, non-toxic appearance. [] HENT: Normocephalic, atraumatic, bilateral external ears normal, nose normal. [] Eyes: PERRLA, conjunctiva normal, no discharge. [] Neck: No rigidity, supple, no stridor. [] Cardiovascular: Regular rate and rhythm, brisk cap refill [] Lungs & Thorax: Non labored symmetric respirations, no tachypnea or respiratory distress [] Abdomen: Soft, nondistended, tenderness in epigastric and periumbilical area. No McBurney's point tenderness.. Skin: Warm, dry, no erythema, no rash. [] Back: Unremarkable Extremities: No deformities, range of motion grossly intact, no lower extremity edema [] Neurologic: Alert and oriented X 3, no focal deficits noted. [] Psychologic: Affect normal, judgement normal, mood normal. [] Current Patient Data: Labs: Laboratory Tests Test 01/24/21 12:09 01/24/21 12:14 01/24/21 12:37 01/24/21 13:02 Urine Collection Type Unknown Urine Color Wise Urine Clarity Clear Urine pH 5.0 (<5.0-8.0) Urine Specific [place] >=1.030 (1.000-1.030) Urine Protein 30 mg/dL (NEG-TRACE) Urine Glucose (UA) Negative mg/dL (NEG) Urine Ketones (Stick) Negative mg/dL (NEG) Urine Blood Large (NEG) Urine Nitrite Negative (NEG) Urine Bilirubin Moderate (NEG) Urine Urobilinogen Dipstick 1.0 mg/dL (0.2 mg/dL) Urine Leukocyte Esterase Trace (NEG) Urine RBC Tntc /HPF (0-2) Urine WBC 0 /HPF (0-4) Urine Squamous Epithelial Cells Many /LPF Urine Bacteria Few /HPF (0-FEW) Urine Mucus Marked /LPF Urine Opiates Screen Neg (NEG) Urine Methadone Screen Neg (NEG) Urine Barbiturates Neg (NEG) Urine Phencyclidine Screen Neg (NEG) Urine Amphetamine/Methamphetamine Neg (NEG) Urine Benzodiazepines Screen Neg (NEG) Urine Cocaine Screen Neg (NEG) Urine Cannabinoids Screen Neg (NEG) Urine Ethyl Alcohol Neg (NEG) POC Urine HCG, Qualitative Hcg negative (Negative) White Blood Count 14.3 x10^3/uL (4.0-11.0) H Red Blood Count 4.80 x10^6/uL (3.50-5.40) Hemoglobin 8.6 g/dL (12.0-15.5) L Hematocrit 29.0 % (36.0-47.0) L Mean Corpuscular Volume 60 fL (79-100) L Mean Corpuscular Hemoglobin 18 pg (25-35) L Mean Corpuscular Hemoglobin Concent 30 g/dL (31-37) L Red Cell Distribution Width 19.4 % (11.5-14.5) H Platelet Count 454 x10^3/uL (140-400) H Neutrophils (%) (Auto) 66 % (31-73) Lymphocytes (%) (Auto) 18 % (24-48) L Monocytes (%) (Auto) 8 % (0-9) Eosinophils (%) (Auto) 7 % (0-3) H Basophils (%) (Auto) 1 % (0-3) Neutrophils # (Auto) 9.4 x10^3/uL (1.8-7.7) H Lymphocytes # (Auto) 2.6 x10^3/uL (1.0-4.8) Monocytes # (Auto) 1.2 x10^3/uL (0.0-1.1) H Eosinophils # (Auto) 1.0 x10^3/uL (0.0-0.7) H Basophils # (Auto) 0.2 x10^3/uL (0.0-0.2) Sodium Level 139 mmol/L (136-145) Potassium Level 3.6 mmol/L (3.5-5.1) Chloride Level 104 mmol/L (98-107) Carbon Dioxide Level 22 mmol/L (21-32) Anion Gap 13 (6-14) Blood Urea Nitrogen 4 mg/dL (7-20) L Creatinine 0.7 mg/dL (0.6-1.0) Estimated GFR (Cockcroft-Gault) 102.0 BUN/Creatinine Ratio 6 (6-20) Glucose Level 160 mg/dL (70-99) H Lactic Acid Level 1.4 mmol/L (0.4-2.0) Calcium Level 8.5 mg/dL (8.5-10.1) Magnesium Level 1.9 mg/dL (1.8-2.4) Total Bilirubin 1.1 mg/dL (0.2-1.0) H Aspartate Amino Transferase (AST) 733 U/L (15-37) H Alanine Aminotransferase (ALT) 430 U/L (14-59) H Alkaline Phosphatase 279 U/L (46-116) H Total Protein 7.7 g/dL (6.4-8.2) Albumin 3.0 g/dL (3.4-5.0) L Albumin/Globulin Ratio 0.6 (1.0-1.7) L Lipase 64 U/L (73-393) L Influenza Type A Antigen Negative (NEGATIVE) Influenza Type B Antigen Negative (NEGATIVE) Laboratory Tests 01/24/21 12:37 Laboratory Tests 01/24/21 12:37 Vital Signs: Vital Signs Date Time Temp Pulse Resp B/P (MAP) Pulse Ox O2 Delivery O2 Flow Rate FiO2 01/24/21 12:20 97.6 89 24 119/75 (90) 98 Room Air 97.6 EKG: EKG: [] Heart Score: C/O Chest Pain: No Risk Factors: Risk Factors: DM, Current or recent (<one month) smoker, HTN, HLP, family history of CAD, obesity. Risk Scores: Score 0 - 3: 2.5% MACE over next 6 weeks - Discharge Home Score 4 - 6: 20.3% MACE over next 6 weeks - Admit for Clinical Observation Score 7 - 10: 72.7% MACE over next 6 weeks - Early Invasive Strategies Radiology/Procedures: Radiology/Procedures: EXAMINATION: CT ABDOMEN+PELVIS W (CT ABDOMEN/PELVIS WITH IV CONTRAST) CLINICAL HISTORY: Abdominal pain, nausea, vomiting, diarrhea x1 week history of cholecystectomy, nephrolithiasis, and pyelonephritis TECHNIQUE: CT of the abdomen and pelvis was performed using standard technique, scanning from just above the dome of the diaphragm to the symphysis pubis following administration of intravenous contrast. CT Dose Reduction Employed: One or more of the following individualized dose reduction techniques were utilized for this examination: 1. Automated exposure control 2. Adjustment of the mA and/or kV according to patient size 3. Use of iterative reconstruction technique. COMPARISON: 05/27/2020 FINDINGS: Partially visualized heart and lung bases unremarkable. Hepatosplenomegaly with moderate hepatic steatosis. Liver and spleen both mildly enlarged compared to prior study. Cholecystectomy. Pancreas, adrenal glands, an d kidneys unremarkable. Decompressed urinary bladder suboptimally evaluated. Retroverted uterus, similar to prior study. Ovaries unremarkable. No bowel dilation or definite wall thickening, although evaluation as limited by minimal distention of the stomach, small bowel, and colon normal appendix. No abdominal aortic or iliac artery aneurysm. No lymphadenopathy. No evidence of acute osseous abnormality. IMPRESSION: No evidence of acute abdominopelvic abnormality. Hepatosplenomegaly and hepatic steatosis with mild interval organ enlargement. [] Course & Med Decision Making: Course & Med Decision Making Pertinent Labs and Imaging studies reviewed. (See chart for details) Patient tolerating p.o. and pain control. Discussed return precautions. Acute hepatitis panel sent, patient has follow-up with her primary care in about 1 week. [] Dragon Disclaimer: Dragon Disclaimer: This electronic medical record was generated, in whole or in part, using a voice recognition dictation system. Departure Departure Impression: Primary Impression: Nausea vomiting and diarrhea Disposition: 01 HOME SELF CARE/HOMELESS Condition: STABLE Referrals: NO PCP (PCP) Patient Instructions: Diet for Diarrhea, Adult Scripts Dicyclomine Hcl (DICYCLOMINE HCL) 20 Mg Tablet 1 TAB PO TID PRN for ABDOMINAL PAIN for 10 Days, #30 TAB 1 Refill Prov: MARCO ZUÑIGA MD 01/24/21 Ondansetron (ONDANSETRON ODT) 4 Mg Tab.rapdis 1 TAB PO PRN Q6-8HRS PRN for NAUSEA, #16 TAB Prov: MARCO ZUÑIGA MD 01/24/21 MARCO ZUÑIGA MD Jan 24, 2021 13:06
[2021-01-24] MEDS: IOHEXOL 300 MG/ML 100ML VIAL. IV ONE (13:13)
[2021-01-24 13:42] LABS: INFLUENZA A PATIENT NEGATIVE (NEGATIVE); INFLUENZA B PATIENT NEGATIVE (NEGATIVE)
--- NOTE | 2021-01-24 13:43 | RAD ---
EXAMINATION: CT ABDOMEN+PELVIS W (CT ABDOMEN/PELVIS WITH IV CONTRAST) CLINICAL HISTORY: Abdominal pain, nausea, vomiting, diarrhea x1 week history of cholecystectomy, neph rolithiasis, and pyelonephritis TECHNIQUE: CT of the abdomen and pelvis was performed using standard technique, scanning from just ab ove the dome of the diaphragm to the symphysis pubis following administration of intravenous contrast . CT Dose Reduction Employed: One or more of the following individualized dose reduction techniques wer e utilized for this examination: 1. Automated exposure control 2. Adjustment of the mA and/or kV ac cording to patient size 3. Use of iterative reconstruction technique. COMPARISON: 05/27/2020 FINDINGS: Partially visualized heart and lung bases unremarkable. Hepatosplenomegaly with moderate hepatic steatosis. Liver and spleen both mildly enlarged compared to prior study. Cholecystectomy. Pancreas, adrenal glands, and kidneys unremarkable. Decompressed urinary bladder suboptimally evaluated. Retroverted uterus, similar to prior study. Ovar ies unremarkable. No bowel dilation or definite wall thickening, although evaluation as limited by minimal distention o f the stomach, small bowel, and colon normal appendix. No abdominal aortic or iliac artery aneurysm. No lymphadenopathy. No evidence of acute osseous abnormality. IMPRESSION: No evidence of acute abdominopelvic abnormality. Hepatosplenomegaly and hepatic steatosis with mild interval organ enlargement. Electronically signed by: Trevor Werner DO (01/24/2021 1:41 PM) [id number]
[2021-01-24] MEDS ORDERED: DICY20TA3 PO (14:35)
[2021-01-24] MEDS ORDERED: ONDA4TAB12 PO (14:35)
[2021-01-24 14:49] VITALS: BP 129/60
== END 2021-01-24 15:38 | disposition home or self-care (01) ==
LOC: ER 12:04
DX: R11.2 Nausea with vomiting, unspecified (principal); Z20.822 Contact with and (suspected) exposure to COVID-19; R10.13 Epigastric pain; R19.7 Diarrhea, unspecified; D64.9 Anemia, unspecified; E11.9 Type 2 diabetes mellitus without complications; I10 Essential (primary) hypertension; F17.200 Nicotine dependence, unspecified, uncomplicated; Z90.49 Acquired absence of other specified parts of digestive tract
CPT/HCPCS: 36415; 74177; 80053; 80307; 81001; 81025; 83605; 83690; 83735; 85025; 86705; 86709; 86803; 87086; 87340; 87804; 96361; 96374; 96375; 99285; J2405; J3010; J7030; Q9967; U0003

== ENCOUNTER 2021-04-13 20:30 | Emergency (ER) | payer SELFPAY ==
[~2021-04-13] VITALS: Ht 162.6 cm; Wt 140.0 kg
[~2021-04-13 20:30] MED LIST changes: +DICY20TA3 PO; +ONDA4TAB12 PO
--- NOTE | 2021-04-13 20:51 | ED.ADGEN ---
Past Medical History Past Medical History: Anemia, Diabetes-Type II, Hypertension Additional Past Medical Histor: Insomnia Past Surgical History: Cholecystectomy Smoking Status: Current Every Day Smoker Alcohol Use: None Drug Use: None General Adult EDM: Chief Complaint: SYNCOPE HPI: HPI: Patient is a 26 year old Female presenting after syncopal episode 3 hours prior to arrival. Patient states that she was sitting on her bed talking to her sister on Facebook. Patient states that she then woke up on her bed with a little bit of blood coming from her nose. States that her sister told her that she saw her lying backwards and had her eyes closed. Patient says that her family said they have been kind to call her for about 30 minutes before she woke up. Patient states she felt lightheaded prior. Patient states that she has had occasional sharp low right-sided chest pains that radiate to the back and left- sided headaches for the past few days. Also states that for the past couple days she has had diarrhea and nausea, but denies any vomiting. Denies any fever s. States she has been eating and drinking okay. Is received one of her Pfizer vaccines about 1 month ago, has not gotten her second 1 because she was ill at the time that was scheduled. Has her baseline "smoker's cough". Review of Systems: Review of Systems: All other systems within normal limits except for as noted in the HPI Current Medications: Current Medications Medications (Trade) Dose Ordered Sig/Pretty Start Time Stop Time Status Last Admin Dose Admin Sodium Chloride 1,000 ml @ 1,000 mls/hr 1X ONCE 04/13/21 21:00 04/13/21 21:59 DC 04/13/21 21:04 1,000 MLS/HR Allergies: Allergies: Allergies Coded Allergies Type Severity Reaction Last Updated Verified No Known Drug Allergies 01/24/21 No Physical Exam: PE: Constitutional: Well developed, well nourished, no acute distress, non-toxic appearance. [] HENT: Normocephalic, atraumatic, bilateral external ears normal, nose normal. [] Eyes: PERRLA, conjunctiva normal, no discharge. [] Neck: No rigidity, supple, no stridor. [] Cardiovascular: Regular rate and rhythm, brisk cap refill [] Lungs & Thorax: Non labored symmetric respirations, no tachypnea or respiratory distress [] Abdomen: Soft, nondistended. Skin: Warm, dry, no erythema, no rash. [] Back: Unremarkable Extremities: No deformities, range of motion grossly intact, no lower extremity edema [] Neurologic: Alert and oriented X 3, no focal deficits noted. [] Psychologic: Affect normal, judgement normal, mood normal. [] Current Patient Data: Labs: Laboratory Tests Test 04/13/21 20:20 04/13/21 21:00 04/13/21 22:10 04/13/21 22:30 Urine Collection Type Unknown Urine Color Yellow Urine Clarity Clear Urine pH 6.5 (<5.0-8.0) Urine Specific [place] 1.020 (1.000-1.030) Urine Protein Negative mg/dL (NEG-TRACE) Urine Glucose (UA) Negative mg/dL (NEG) Urine Ketones (Stick) Negative mg/dL (NEG) Urine Blood Negative (NEG) Urine Nitrite Negative (NEG) Urine Bilirubin Negative (NEG) Urine Urobilinogen Dipstick 1.0 mg/dL (0.2 mg/dL) Urine Leukocyte Esterase Moderate (NEG) Urine RBC 0 /HPF (0-2) Urine WBC 20-40 /HPF (0-4) Urine Squamous Epithelial Cells Many /LPF Urine Bacteria Few /HPF (0-FEW) Urine Mucus Marked /LPF Urine Opiates Screen Neg (NEG) Urine Methadone Screen Neg (NEG) Urine Barbiturates Neg (NEG) Urine Phencyclidine Screen Neg (NEG) Urine Amphetamine/Methamphetamine Neg (NEG) Urine Benzodiazepines Screen Neg (NEG) Urine Cocaine Screen Neg (NEG) Urine Cannabinoids Screen Neg (NEG) Urine Ethyl Alcohol Neg (NEG) White Blood Count 14.9 x10^3/uL (4.0-11.0) H Red Blood Count 4.83 x10^6/uL (3.50-5.40) Hemoglobin 9.0 g/dL (12.0-15.5) L Hematocrit 29.7 % (36.0-47.0) L Mean Corpuscular Volume 62 fL (79-100) L Mean Corpuscular Hemoglobin 19 pg (25-35) L Mean Corpuscular Hemoglobin Concent 30 g/dL (31-37) L Red Cell Distribution Width 24.0 % (11.5-14.5) H Platelet Count 549 x10^3/uL (140-400) H Neutrophils (%) (Auto) 72 % (31-73) Lymphocytes (%) (Auto) 21 % (24-48) L Monocytes (%) (Auto) 5 % (0-9) Eosinophils (%) (Auto) 2 % (0-3) Basophils (%) (Auto) 0 % (0-3) Neutrophils # (Auto) 10.7 x10^3/uL (1.8-7.7) H Lymphocytes # (Auto) 3.1 x10^3/uL (1.0-4.8) Monocytes # (Auto) 0.8 x10^3/uL (0.0-1.1) Eosinophils # (Auto) 0.3 x10^3/uL (0.0-0.7) Basophils # (Auto) 0.1 x10^3/uL (0.0-0.2) Platelet Estimate Increased (ADEQUATE) Polychromasia Slight Hypochromasia Marked Anisocytosis Mod Microcytosis Marked Sodium Level 137 mmol/L (136-145) Potassium Level 4.8 mmol/L (3.5-5.1) Chloride Level 103 mmol/L (98-107) Carbon Dioxide Level 22 mmol/L (21-32) Anion Gap 12 (6-14) Blood Urea Nitrogen 10 mg/dL (7-20) Creatinine 1.1 mg/dL (0.6-1.0) H Estimated GFR (Cockcroft-Gault) 60.0 BUN/Creatinine Ratio 9 (6-20) Glucose Level 183 mg/dL (70-99) H Calcium Level 9.2 mg/dL (8.5-10.1) Phosphorus Level 4.9 mg/dL (2.6-4.7) H Magnesium Level 1.8 mg/dL (1.8-2.4) Total Bilirubin 0.3 mg/dL (0.2-1.0) Aspartate Amino Transferase (AST) 32 U/L (15-37) Alanine Aminotransferase (ALT) 28 U/L (14-59) Alkaline Phosphatase 126 U/L (46-116) H Troponin I Quantitative < 0.017 ng/mL (0.000-0.055) GH-Xjt-H-Type Natriuretic Peptide 16 pg/mL (0-124) Total Protein 8.0 g/dL (6.4-8.2) Albumin 3.0 g/dL (3.4-5.0) L Albumin/Globulin Ratio 0.6 (1.0-1.7) L Ethyl Alcohol Level < 10 mg/dL (0-10) POC Urine HCG, Qualitative Hcg negative (Negative) D-Dimer (Cara) 0.37 ug/mlFEU (0.00-0.50) Laboratory Tests 04/13/21 21:00 Laboratory Tests 04/13/21 21:00 Vital Signs: Vital Signs Date Time Temp Pulse Resp B/P (MAP) Pulse Ox O2 Delivery O2 Flow Rate FiO2 04/13/21 20:37 99.0 113 18 142/66 (91) 98 Room Air 99.0 EKG: EKG: [] Heart Score: C/O Chest Pain: Yes HEART Score for Chest Pain: HEART Score for Chest Pain Response (Comments) Value History Slighlty/Non-Suspicious 0 ECG Normal 0 Age < 45 0 Risk Factors 1 or 2 Risk Factors 1 Troponin < Normal Limit 0 Total 1 Risk Factors: Risk Factors: DM, Current or recent (<one month) smoker, HTN, HLP, family history of CAD, obesity. Risk Scores: Score 0 - 3: 2.5% MACE over next 6 weeks - Discharge Home Score 4 - 6: 20.3% MACE over next 6 weeks - Admit for Clinical Observation Score 7 - 10: 72.7% MACE over next 6 weeks - Early Invasive Strategies Radiology/Procedures: Radiology/Procedures: [facility] [address] [place] [address] IMAGING REPORT Signed PATIENT: ROSALINDA VELAZQUEZ ACCOUNT: [id number] : 1995 LOCATION: ER AGE: 26 SEX: F EXAM STATUS: REG ER ORD. PHYSICIAN: MARCO ZUÑIGA MD REASON: headache, syncope PROCEDURE: CT HEAD WO CONTRAST CT HEAD/BRAIN WO dated 04/13/2021 10:18 PM. Comparison: None. Clinical Indication: Reason: headache, syncope / Spl. Instructions: / History: Technical factors: Contiguous 5 mm axial images of the head were obtained from the skullbase to the vertex. No contrast was administered. Findings: There is no apparent intracranial hemorrhage or abnormal extra-axial fluid collection. No area of abnormal density is seen. The ventricles and basilar cisterns are normally positioned. Bone windows show no fracture of the skull. There is some mucosal thickening and fluid in the left maxillary sinus. Impression: No acute abnormality in the brain. Fluid and mucosal thickening in the left maxillary sinus. Electronically signed by: Kelly Dacosta Jr., MD (04/13/2021 10:42 PM) [facility] DICTATED and SIGNED BY: KELLY DACOSTA Jr, MD DATE: 04/13/21 [id number] [] Course & Med Decision Making: Course & Med Decision Making Pertinent Labs and Imaging studies reviewed. (See chart for details) [] Dragon Disclaimer: Supersonic Disclaimer: This electronic medical record was generated, in whole or in part, using a voice recognition dictation system. Departure Departure Impression: Primary Impression: Sinus infection Disposition: HOME / SELF CARE / HOMELESS Condition: STABLE Referrals: NO PCP (PCP) Patient Instructions: Sinus Headache Scripts Guaifenesin (GUAIFENESIN) 400 Mg Tablet 1 TAB PO TID for congestion for 5 Days, #15 TAB 0 Refills Prov: MARCO ZUÑIGA MD 04/14/21 Amoxicillin/Potassium Clav (AUGMENTIN 875-125 TABLET) 1 Each Tablet 1 TAB PO Q12HR for antibiotic for 10 Days, #20 TAB Prov: MARCO ZUÑIGA MD 04/14/21 MARCO ZUÑIGA MD Apr 13, 2021 20:51
[2021-04-13] MEDS ORDERED: IV NORMAL SALINE 1000ML BAG 1,000 ML IV ONE (21:00)
[2021-04-13 21:03] LABS: BILIRUBIN,URINE NEGATIVE (NEG); CLARITY,URINE CLEAR; COLOR,URINE YELLOW; NITRITE,URINE NEGATIVE (NEG); PH,URINE 6.5 (<5.0-8.0); PROTEIN,URINE NEGATIVE (NEG-TRACE)
[2021-04-13 21:10] LABS: AMPHETAMINE/METHAMPHETAMINE NEG (NEG); BARBITURATES NEG (NEG); BENZODIAZEPINES NEG (NEG); CANNABINOIDS NEG (NEG); COCAINE NEG (NEG); METHADONE NEG (NEG); OPIATES NEG (NEG); PHENCYCLIDINE NEG (NEG)
[2021-04-13 21:14] LABS: BASO # 0.1 x10^3/uL (0.0-0.2); BASO % 0 % (0-3); EOS # 0.3 x10^3/uL (0.0-0.7); EOS % 2 % (0-3); HEMATOCRIT 29.7 % (36.0-47.0); LYMPH # 3.1 x10^3/uL (1.0-4.8); LYMPH % 21 % (24-48); MEAN CORPUSCULAR HEMOGLOBIN 19 pg (25-35); MEAN CORPUSCULAR HGB CONC 30 g/dL (31-37); MEAN CORPUSCULAR VOLUME 62 fL (79-100); MONO # 0.8 x10^3/uL (0.0-1.1); MONO % 5 % (0-9); NEUT # 10.7 x10^3/uL (1.8-7.7); NEUT % 72 % (31-73); PLATELET COUNT 549 x10^3/uL (140-400); RED BLOOD COUNT 4.83 x10^6/uL (3.50-5.40); WHITE BLOOD COUNT 14.9 x10^3/uL (4.0-11.0)
[2021-04-13 21:14] LABS: BACTERIA,URINE FEW /HPF (0-FEW); RBC,URINE 0 /HPF (0-2); WBC,URINE 20-40 /HPF (0-4)
[2021-04-13 21:22] LABS: CALCIUM 9.2 mg/dL (8.5-10.1); CREATININE 1.1 mg/dL (0.6-1.0); POTASSIUM 4.8 mmol/L (3.5-5.1)
[2021-04-13 21:28] LABS: ALBUMIN/GLOBULIN RATIO 0.6 (1.0-1.7); MAGNESIUM 1.8 mg/dL (1.8-2.4); PHOSPHORUS 4.9 mg/dL (2.6-4.7); TOTAL BILIRUBIN 0.3 mg/dL (0.2-1.0)
--- NOTE | 2021-04-13 22:44 | RAD ---
CT HEAD/BRAIN WO dated 04/13/2021 10:18 PM. Comparison: None. Clinical Indication: Reason: headache, syncope / Spl. Instructions: / History: Technical factors: Contiguous 5 mm axial images of the head were obtained from the skullbase to the vertex. No contrast was administered. Findings: There is no apparent intracranial hemorrhage or abnormal extra-axial fluid collection. No area of abn ormal density is seen. The ventricles and basilar cisterns are normally positioned. Bone windows show no fracture of the skull. There is some mucosal thickening and fluid in the left maxillary sinus. Impression: No acute abnormality in the brain. Fluid and mucosal thickening in the left maxillary sinus. Electronically signed by: Ryan Case Jr., MD (04/13/2021 10:42 PM) [facility]
[2021-04-13 23:56] VITALS: BP 115/75
[2021-04-14 00:03] LABS: PLT ESTIMATE INCREASED (ADEQUATE)
[2021-04-14 00:04] LABS: ANISOCYTOSIS MOD; HYPOCHROMIA MARKED; MICROCYTOSIS MARKED; POLYCHROMASIA SLIGHT
[2021-04-14] MEDS ORDERED: AMOX1TAB61 PO (00:30)
[2021-04-14] MEDS ORDERED: GUAI400T78 PO (00:30)
--- NOTE | 2021-04-14 04:18 | EKG ---
[facility] [address] [place] [address] Test Date: 2021-04-13 Test Time: 21:11:33 Pat Name: ROSALINDA VELAZQUEZ Department: Room: Gender: F School Inspector: : 1995 Requested By: MARCO ZUÑIGA Order Number: [id number] Reading MD: Measurements Intervals [place] Rate: 105 P: 39 SD: 132 QRS: 7 QRSD: 104 T: 27 QT: 366 QTc: 488 Interpretive Statements SINUS TACHYCARDIA R-S TRANSITION ZONE IN V LEADS DISPLACED TO THE LEFT QRS(T) CONTOUR ABNORMALITY CONSIDER ANTEROSEPTAL MYOCARDIAL DAMAGE POSSIBLY ABNORMAL ECG RI6.01 No previous ECG available for comparison
== END 2021-04-14 00:58 | disposition home or self-care (01) ==
LOC: ER 20:30
DX: J32.9 Chronic sinusitis, unspecified (principal); E11.9 Type 2 diabetes mellitus without complications; I10 Essential (primary) hypertension; F17.200 Nicotine dependence, unspecified, uncomplicated
CPT/HCPCS: 36415; 70450; 80053; 80307; 81001; 81025; 83735; 83880; 84100; 84484; 85025; 85379; 87086; 93005; 96360; 99285; G0480; J7030